=== PATIENT | female | born 1970 | race Caucasian/White ===

== ENCOUNTER → 2018-03-21 | Outpatient (CLI) | payer BC ==
[~2018-03-21] MED LIST: CIMETIDINE PO; XYZAL5 MG PO; Z.0.PRENATAL VITAM1
--- NOTE | 2018-03-21 13:00 | Diagnostic Imaging Report ---
EXAM: US ABDOMEN COMPLETE DATE: 03/21/2018 10:35 AM INDICATION: Periumbilical swelling COMPARISON: None TECHNIQUE: Transverse and longitudinal moreno scale and color doppler sonographic images of the upper abdomen were obtained. FINDINGS: LIVER 18 cm in the right midclavicular line. Normal echogenicity, normal contour, no masses. SPLEEN 11.5 cm in maximum diameter. Normal echogenicity, no masses. GALLBLADDER No stones, sludge, wall-thickening or pericholecystic fluid. Negative sonographic Pelaez's sign. BILE DUCTS No intra nor extra-hepatic biliary dilation. Common bile duct measures 0.2 cm PANCREAS: Limited by overlying bowel gas RIGHT KIDNEY: 10.9 cm Echogenicity: Normal Collecting System: No hydronephrosis Stones: None Cyst/Mass: None LEFT KIDNEY: 11 cm Echogenicity: Normal Collecting System: No hydronephrosis Stones: None Cyst/Mass: None VESSELS: Aorta: Limited by overlying bowel gas Inferior Vena Cava: Limited by overlying bowel gas Main Portal Vein: 1.2 cm, normal size with hepatopetal flow. FREE FLUID: None Limited evaluation of the area of clinical concern shows no mass or fluid collection in the periumbilical area. IMPRESSION: Mild hepatomegaly without focal mass. Otherwise unremarkable abdominal ultrasound. No mass or fluid collection in the area of clinical concern. Signed by: Dr. Nguyễn ePña M.D. on 03/21/2018 12:57 PM
== END ==
LOC: US 10:15
PROVIDERS: ATTEND Internal Medicine Gastroenterology
DX: R19.05 Periumbilic swelling, mass or lump (principal)
CPT/HCPCS: 76700

== ENCOUNTER → 2018-03-26 | Day surgery (SDC) | payer BC ==
[~2018-03-26] MED LIST changes: +FENTANYL CITRATE/PF 100MCG/2 ML INJ ONE; +HYOSCYAMINE SULFATE 0.5 MG/ML INJ ONE; +MIDAZOLAM HCL 2 MG/2 ML VIAL ONE; +PROPOFOL IV EMULSION 10 MG/ML 50 ML VIAL ONE
--- OUTSIDE RECORDS SUMMARY | 2018-03-26 09:08 | XMS REPORT | Encounter Summary ---
Author Organization Unknown Address [address] [place] [id number] Phone [phone] Reason for Visit Medical Complaint Instructions 1. Acute maxillary sinusitis rapid flu (A+B) Augmentin 875 mg-125 mg tablet prednisone 20 mg tablet 2. Seasonal allergic rhinitis 3. Body mass index 25-29 - overweight A healthy lifestyle: care instructions Discussion Note: None recorded. Plan of Care Patient Instructions Continue flonase and xyzal at home. If not improve in 3days, call clinic or see pcp. Reminders Provider Appointments None recorded. Lab Rapid Flu (A+B) 07/17/2017 [facility] Referral None recorded. Procedures None recorded. Surgeries None recorded. Imaging None recorded. Medications Name Start Date Augmentin 875 mg-125 mg tablet Take 1 tablet every 12 hours by oral route after meals for 7 days. prednisone 20 mg tablet Take 1 tablet twice a day by oral route after meals for 3 days. ranitidine 300 mg tablet Medications Administered None recorded. Vitals Height Weight BMI Blood Pressure 5 ft 7 in 187 lbs 29.3 kg/m2 118/64 mm[Hg] Lab Results Date Name Specimen Result Interpretation Description Value Range Status Address Rapid Flu (A+B) Influenza a negative [facility]: [address] [place] [address] Influenza B negative [facility]: [address] [place] [address] Allergies Code Code System Name Reaction Severity Status Onset NKDA Problems Name Status Onset Date Source Allergic Rhinitis Due to Pollen Active Encounter Procedures None recorded. Vaccine List None recorded. Social History Smoking Status Never Smoker Past Encounters 07/17/2017 Acute Maxillary Sinusitis; Seasonal Allergic Rhinitis; Body Mass Index 25-29 - Overweight Darcy Green, STRATE[employer]IC PLANNING DIRECTOR: [address] [place] [address], Ph. History of Present Illness Cough Reported By: Patient HPI: Location: nasal/sinus. Quality: productive cough, colored phlegm, congested. Duration: 7 days. Severity: severe. Onset/Timing: sudden. Context: no sick contacts, no foreign travel, non-smoker, allergies. Modifying factors: OTC medication. Associated Symptoms: no shortness of breath, no wheezing, no sweats, no significant weight gain, no significant weight loss, no morning cough, no sore throat, no vomiting, no diarrhea, no rash, no nausea, no fever/chills, no muscle aches, no headache, yellow sputum Review of Systems Basic Reported By: Patient Constitutional: Constitutional: no fever Eyes: Eyes: no eye complaints Cvpx-Manz-Ovapb-Throat: Ears: no ear complaints. Nose: nose/sinus problems. Mouth/Throat: no sore throat, no bleeding gums, no mouth complaints, no teeth problems Cardiovascular: Cardiovascular: no chest pain, no shortness of breath, no known heart murmur Respiratory: Respiratory: no wheezing, no shortness of breath, cough Gastrointestinal: Gastrointestinal: no abdominal pain, no vomiting / diarrhea Genitourinary: Genitourinary: no urinary complaints, no discharge Musculoskeletal: Musculoskeletal: no muscle aches, no muscle weakness, no arthralgias/joint pain, no back pain Skin: Skin: no abnormal / changing mole, no jaundice, no rashes Neurologic: Neurologic: no loss of consciousness, no weakness, no numbness, no seizures, no dizziness, no headaches Physical Exam Adult Basic, 14-21 Yr Male, Adult Female Complete Reported By: Patient Constitutional: General Appearance: overweight. Level of Distress: NAD Eyes: Lids and Conjunctivae: non-injected, no discharge. Pupils: equal size, round, reactive to light. Sclerae: non-icteric Frz-Zvju-Hbvwe-Throat: Ears: no lesions on external ear, no outer ear tenderness, EACs clear, TMs clear, middle ear fluid. Nose: no lesions on external nose, nares patent, no septal deviation, nasal passages clear, sinus tenderness, nasal discharge--purulent, post nasal drip. Lips, Teeth, and Gums: no mouth or lip ulcers, no bleeding gums, normal dentition. Oropharynx: moist mucous membranes, no erythema, no exudates, tonsils not enlarged Neck: Lymph Nodes: cervical lympadenopathy. Thyroid: no enlargement, non-tender, no nodules, no asymmetry Lungs: Respiratory effort: no tachypnea. Auscultation: clear to auscultation, no wheezing, no rales/crackles, no rhonchi, no retractions Cardiovascular: Heart Auscultation: no murmurs, no gallops, no rub. Apical impulse: not displaced. Rate and rhythm: regular
--- OUTSIDE RECORDS SUMMARY | 2018-03-26 09:08 | XMS REPORT ---
Author Author [facility] Address Unknown Phone Unavailable Care Team Providers Care Feather Trimmer Name Role Phone BERNARD MARTINEZ Unavailable Unavailable Problems This patient has no known problems. Allergies, Adverse Reactions, Alerts This patient has no known allergies or adverse reactions. Medications This patient has no known medications. Results Test Description Test Time Test Comments Text Results Atomic Results Result Comments US ABDOMEN COMPLETE 2018-03-21 12:54:00 [place] [address] Patient Name: MALIA STINSON MR #: [id number] : 1970 Age/Sex: 48/F Req #: [id number] Adm Physician: Ordered by: BERNARD MARTINEZ MD Report #: [id number] Location: US Room/Bed: Procedure: [id number] US/US ABDOMEN COMPLETE Exam Date: 03/21/18 Exam Time: 1110 REPORT STATUS: Signed EXAM: US ABDOMEN COMPLETE DATE: 03/21/2018 10:35 AM INDICATION: Periumbilical swelling COMPARISON: None TECHNIQUE: Transverse and longitudinal moreno scale and color doppler sonographic images of the upper abdomen were obtained. FINDINGS: LIVER 18 cm in the right midclavicular line. Normal echogenicity, normal contour, no masses. SPLEEN 11.5 cm in maximum diameter. Normal echogenicity, no masses. GALLBLADDER No stones, sludge, wall-thickening or pericholecystic fluid. Negative sonographic Pelaez's sign. BILE DUCTS No intra nor extra-hepatic biliary dilation. Common bile duct measures 0.2 cm PANCREAS: Limited by overlying bowel gas RIGHT KIDNEY: 10.9 cm Echogenicity: Normal Collecting System: No hydronephrosis Stones: None Cyst/Mass: None LEFT KIDNEY: 11 cm Echogenicity: Normal Collecting System: No hydronephrosis Stones: None Cyst/Mass: None VESSELS: Aorta: Limited by overlying bowel gas Inferior Vena Cava: Limited by overlying bowel gas Main Portal Vein: 1.2 cm, normal size with hepatopetal flow. FREE FLUID: None Limited evaluation of the area of clinical concern shows no mass or fluid collection in the periumbilical area. IMPRESSION: Mild hepatomegaly without focal mass. Otherwise unremarkable abdominal ultrasound. No mass or fluid collection in the area of clinical concern. Signed by: Dr. Shirley Conley M.D. on 03/21/2018 12:57 PM Dictated By: SHIRLEY CONLEY MD [id number] Transcribed By: ADELITA on 03/21/18 1257 COPY TO: BERNARD MARTINEZ MD
[2018-03-26 12:35] VITALS: BP 117/77
--- NOTE | 2018-03-26 13:32 | Operative Report ---
DATE OF PROCEDURE: March 26, 2018 REFERRING PHYSICIAN: Dr. Herber Ramirez PROCEDURE PERFORMED: Esophagogastroduodenoscopy with biopsies. INDICATIONS FOR EGD: Acid reflux. MEDICATION: Patient was done under MAC. Please see anesthesiologist's note. PROCEDURE: With the patient in the left lateral decubitus position, the flexible fiberoptic Olympus gastroscope was introduced into the esophagus under direct visualization without any difficulty. There was a minute ulcer noted at the GE junction. There was no active bleeding or stigmata of recent hemorrhage. The scope was then advanced with ease into the stomach traversing a small sliding hiatal hernia. Mucosa overlying the antrum and the body revealed some patchy erythema and low-grade to moderate edema, and biopsies were obtained and sent to stain for H. pylori. A minute submucosal nodule was noted in the midbody along the anterior wall and that was biopsied. Pylorus appeared to be of normal contour and shape. It was intubated with ease. The scope was advanced all the way to the 2nd portion of the duodenum. The scope was then withdrawn slowly. Mucosa overlying the proximal 2nd portion appeared to be within normal limits. There was some focal nodularity noted in the duodenal bulb that was biopsied. The scope was then withdrawn back into the stomach and retroflexed. Mucosa overlying the fundus and the cardia appeared to be within normal limits. The scope was then straightened out. It was subsequently withdrawn. Patient tolerated the procedure well. IMPRESSION 1. Minute ulcer, gastroesophageal junction without active bleeding or stigmata of recent hemorrhage. 2. Small sliding hiatal hernia. 3. Gastritis, biopsied. Biopsies sent to stain for Helicobacter pylori. 4. Submucosal nodule, minute, midbody anterior wall, biopsied. 5. Focal nodularity, duodenal bulb. PLAN: Follow up histology. Initiate Protonix 40 mg 1 p.o. q.a.m. a.c. Job#: [id number] RI cc:LILIAN RAMIREZ DO
== END | disposition home or self-care (01) ==
LOC: OR 09:06
PROVIDERS: ATTEND Internal Medicine Gastroenterology
DX: K21.9 Gastro-esophageal reflux disease without esophagitis (principal); K29.80 Duodenitis without bleeding; K22.10 Ulcer of esophagus without bleeding; K44.9 Diaphragmatic hernia without obstruction or gangrene; K31.89 Other diseases of stomach and duodenum; R19.05 Periumbilic swelling, mass or lump; Z68.31 Body mass index [BMI] 31.0-31.9, adult; Z80.0 Family history of malignant neoplasm of digestive organs
CPT/HCPCS: 43239; 81025; J1980; J2250